=== PATIENT | female | born 2000 | race Caucasian/White ===

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

== ENCOUNTER 2019-01-02 15:21 | Emergency (ER) | payer OTHER ==
--- NOTE | 2019-01-02 15:46 | Emergency Department Record ---
History of Present Illness - General Chief Complaint: Dizziness Stated Complaint: LIGHTHEADED,NAUSEA Time Seen by Provider: 01/02/19 15:40 Source: Patient Mode of Arrival: Ambulatory Limitations: No limitations - History of Present Illness Initial Comments: 18 yo female presents with nausea, lightheaded and dizziness that started this afternoon. She denies syncope. No fevers. She just completed Macrobid for a UTI. No rash. No fever. No vomiting or diarrhea. Normal recent menstrual cycle. MD Complaint: Dizziness, Lightheadedness Onset/Timin -: Days(s) Timing: Constant Description: Difficulty walking, "Room spinning" History of Same: No History of Trauma: No Severity: Moderate Improves With: Nothing Worsens With: Nothing Associated Symptoms: Denies other symptoms - [place] Coma Scale Eye Response: (4) Open spontaneously Motor Response: (6) Obeys commands Verbal Response: (5) Oriented [place] Total: 15 - Related Data Allergies Allergy/AdvReac Type Severity Reaction Status Date / Time No Known Drug Allergies Allergy Verified 01/02/19 15:33 Travel Screening - Travel/Exposure Within Last 30 Days Have you traveled within the last 30 days?: No - Travel/Exposure Within Last Year Have you traveled outside the [place] in the last year?: No - Additonal Travel Details Have you been exposed to anyone with a communicable illness?: No - Travel Symptoms Symptom Screening: None Review of Systems Constitutional: Reports: Malaise, Weakness. Denies: Chills, Fever Eyes: Denies: Eye discharge, Eye pain, Photophobia, Vision change ENT: Denies: Congestion, Throat pain Respiratory: Denies: Cough, Dyspnea, Hemoptysis, Stridor, Wheezes Cardiovascular: Reports: Palpitations. Denies: Chest pain, Dyspnea on exertion , Edema, Syncope Endocrine: Reports: Fatigue. Denies: Polydipsia, Polyuria Gastrointestinal: Reports: Nausea. Denies: Abdominal pain, Diarrhea, Vomiting Genitourinary: Denies: Dysuria, Urgency Musculoskeletal: Denies: Arthralgia, Back pain, Myalgia Skin: Denies: Bruising, Change in color, Rash Neurological: Reports: Vertigo. Denies: Abnormal gait, Confusion, Headache, Paresthesias, Seizure, Tingling, Tremors Psychiatric: Denies: Anxiety Hematological/Lymphatic: Denies: Easy bleeding, Easy bruising Past Medical History - SOCIAL HISTORY Smoking Status: Never smoker Alcohol Use: None Drug Use: Rare Drug Use Detail:: Marijuana - RESPIRATORY Hx Respiratory Disorders: No - CARDIOVASCULAR Hx Cardio Disorders: No - NEURO Hx Neuro Disorders: No - GI Hx GI Disorders: Yes Hx Abdominal Pain: Yes Hx Nausea/Vomiting: Yes Hx Rectal Bleeding: Yes Comment:: chronic diarrhea - Hx Genitourinary Disorders: Yes Hx UTI: Yes - ENDOCRINE Hx Endocrine Disorders: No - MUSCULOSKELETAL Hx Musculoskeletal Disorders: No - PSYCH Hx Psych Problems: Yes Hx Anxiety: Yes Hx Depression: Yes - HEMATOLOGY/ONCOLOGY Hx Hematology/Oncology Disorders: No Family Medical History Any Significant Family History?: Yes Hx HTN: Father Physical Exam - General General Appearance: Alert, Oriented x3, Cooperative, No acute distress Limitations: No limitations - Head Head exam: Atraumatic, Normal inspection - Eye Eye exam: Normal appearance, Conjunctival injection. negative: Scleral icterus - ENT ENT exam: Normal exam Ear exam: Normal external inspection Nasal Exam: Normal inspection Mouth exam: Normal external inspection Teeth exam: Normal inspection Throat exam: Normal inspection - Neck Neck exam: Normal inspection - Respiratory Respiratory exam: Normal lung sounds bilaterally. negative: Accessory muscle use, Decreased breath sounds, Prolonged expiratory, Respiratory distress, Rhonchi, Stridor, Wheezes - Cardiovascular Cardiovascular Exam: Regular rate, Normal rhythm, Normal heart sounds. negative : Diastolic murmur, Systolic murmur - GI/Abdominal GI/Abdominal exam: Soft. negative: Distended, Guarding, Tenderness - Rectal Rectal exam: Deferred - exam: Deferred - Extremities Extremities exam: Normal inspection. negative: Tenderness - Back Back exam: Denies: CVA tenderness (R), CVA tenderness (L) - Neurological Neurological exam: Alert, CN II-XII intact, Normal gait, Oriented X3. negative : Abnormal gait, Motor sensory deficit - Psychiatric Psychiatric exam: Normal affect, Normal mood. negative: Agitated, Anxious - Skin Skin exam: Dry, Intact, Normal color, Warm Course Vital Signs 01/02/19 15:35 Temperature 98.3 F Pulse Rate 62 Respiratory 18 Rate Blood Pressure 136/79 Pulse Ox 99 - Reevaluation(s) Reevaluation #1: No acute changes on the vitals 01/02/19 15:48 01/02/19 16:09 EKG #1: 16:01 Rate: 63 Rhythm: sinus Boaz: normal Intervals: normal ST segments: normal Medical Decision Making - Lab Data Result diagrams: 01/02/19 16:10 01/02/19 16:10 Disposition Disposition: Discharge Clinical Impression: Lightheadedness, Hypokalemia Disposition: Home, Self-Care Condition: (1) Good Instructions: Dizziness (ED), Hypokalemia (ED) Additional Instructions: Call your doctor for the next available follow up appointment Return to the ER for a recheck if worse, any new concerns or questions Take the prescriptions provided as directed Review this ER visit and the tests performed with your family doctor Forms: Patient Portal Access Time of Disposition: 16:50 Quality - Quality Measures Quality Measures: N/A - Blood Pressure Screening Does Patient Have Any of the Following: No Blood Pressure Classification: Pre-Hypertensive BP Reading Systolic Measurement: 136 Diastolic Measurement: 79 Screening for High Blood Pressure: < Pre-Hypertensive BP, F/U Documented > [ G8950] Pre-Hypertensive Follow-up Interventions: Referral to alternative/primary care provider.
[2019-01-02 16:27] LABS: BASO % 0.3 % (0-6); EOS % 0.2 % (0-6); GRAN % 69.9 % (47-80); HEMATOCRIT 41.8 % (35.0-47.0); MEAN CELL VOLUME 81.3 fl (81-97); MEAN CORPUSCULAR HEMOGLOBIN 25.3 pg (27-33); MEAN CORPUSCULAR HGB CONC 31.1 g/dl (32-36); MEAN PLATELET VOLUME 10.8 fl (7.4-10.4); MONO % 10.6 % (0-9); PLATELET COUNT 267 K/uL (130-400); RED BLOOD COUNT 5.14 M/uL (3.80-5.40); RED CELL DISTRIBUTION WIDTH 14.9 % (11.5-14.5); URINE APPEARANCE CLEAR; URINE BILIRUBIN NEGATIVE (NEGATIVE); URINE BLOOD NEGATIVE (NEGATIVE); URINE COLOR YELLOW; URINE GLUCOSE (UA) NEGATIVE (NEGATIVE); URINE KETONE NEGATIVE (NEGATIVE); URINE LEUKOCYTE ESTERASE NEGATIVE (NEGATIVE); URINE NITRITE NEGATIVE (NEGATIVE); URINE PROTEIN NEGATIVE (NEGATIVE); URINE UROBILINOGEN 0.2 E.U./dL (0.20 - 1.00); WHITE BLOOD COUNT W/O DIFF 8.8 K/uL (4.2-12.2)
[2019-01-02 16:30] LABS: HCG,QUALITATIVE URINE NEGATIVE (NEGATIVE)
[2019-01-02 16:43] LABS: BLOOD UREA NITROGEN 12 mg/dL (6-20); CREATININE 0.6 mg/dL (0.5-0.9)
[2019-01-02 16:46] LABS: GLUCOSE,RANDOM 89 mg/dL (74-109)
[2019-01-02 16:48] LABS: ALT/SGPT 17 U/L (<33); AST/SGOT 16 U/L (10.0-35.0)
[2019-01-02 16:49] LABS: ALB/GLOB RATIO 1.4 (1.1-1.8); ALBUMIN 4.7 g/dL (4.0-5.0); ALKALINE PHOSPHATASE 88 U/L (35-104)
[2019-01-02] MEDS ORDERED: POTASSIUM CHLORIDE 20 MEQ TABLET PO ONE (16:50)
== END 2019-01-02 17:11 | disposition home or self-care (01) ==
LOC: ER 15:21
DX: R42 Dizziness and giddiness (principal); E87.6 Hypokalemia; R11.0 Nausea
CPT/HCPCS: 80053; 81003; 81025; 85025; 93005; 93010; 99284

== ENCOUNTER 2019-05-09 18:42 | Emergency (ER) | payer OTHER ==
[2019-05-09 18:57] LABS: URINE APPEARANCE CLEAR; URINE BILIRUBIN NEGATIVE (NEGATIVE); URINE BLOOD TRACE-I (NEGATIVE); URINE COLOR YELLOW; URINE KETONE NEGATIVE (NEGATIVE); URINE LEUKOCYTE ESTERASE TRACE (NEGATIVE); URINE PROTEIN TRACE (NEGATIVE)
--- NOTE | 2019-05-09 19:02 | Emergency Department Record ---
History of Present Illness - General Stated complaint: PAINFUL FREQUENT URINATION Time Seen by Provider: 05/09/19 18:44 Source: Patient Mode of Arrival: Ambulatory Limitations: No limitations - History of Present Illness Initial comments: 19 yo female presents to ED for evaluation of urinary frequency and burning that began yesterday morning. Patient reports mild suprapubic discomfort, denies flank pain, nausea, vomiting, or fever symptoms. Patient denies health problems at her baseline. Patient denies history of kidney stones as well. Patient also reports that she has been taking Azo at home. MD Complaint: Dysuria Onset/Timin -: Days(s) Location: Suprapubic Radiation: Non-radiating Severity: Moderate Quality: Burning Consistency: Intermittent Improves with: None Worsens with: Urination Patient : No Associated Symptoms: Denies other symptoms - Related Data Previous Rx's Medication Instructions Recorded Nitrofurantoin Monohyd/M-Cryst 100 mg PO BID #13 capsule 05/09/19 [Macrobid 100 mg Capsule] Allergies Allergy/AdvReac Type Severity Reaction Status Date / Time No Known Drug Allergies Allergy Verified 05/09/19 19:02 Review of Systems Constitutional: Denies: Chills, Fever, Malaise, Night sweats Eyes: Denies: Eye discharge, Eye pain ENT: Denies: Congestion, Ear pain, Epistaxis Respiratory: Denies: Cough, Dyspnea Cardiovascular: Denies: Chest pain, Dyspnea on exertion Endocrine: Denies: Fatigue, Heat or cold intolerance Gastrointestinal: Reports: Abdominal pain. Denies: Nausea, Vomiting Genitourinary: Reports: Dysuria, Frequency. Denies: Incontinence, Retention Musculoskeletal: Denies: Arthralgia, Back pain Skin: Denies: Bruising, Change in color Neurological: Denies: Abnormal gait, Confusion, Headache, Tingling, Tremors Psychiatric: Denies: Anxiety Hematological/Lymphatic: Denies: Anemia, Blood Clots Past Medical History - SOCIAL HISTORY Smoking Status: Never smoker Drug Use: Rare Drug Use Detail:: Marijuana - RESPIRATORY Hx Respiratory Disorders: No - CARDIOVASCULAR Hx Cardio Disorders: No - NEURO Hx Neuro Disorders: No - GI Hx GI Disorders: Yes Hx Abdominal Pain: Yes Hx Nausea/Vomiting: Yes Hx Rectal Bleeding: Yes Comment:: chronic diarrhea - Hx Genitourinary Disorders: Yes Hx UTI: Yes - ENDOCRINE Hx Endocrine Disorders: No - MUSCULOSKELETAL Hx Musculoskeletal Disorders: No - PSYCH Hx Psych Problems: Yes Hx Anxiety: Yes Hx Depression: Yes - HEMATOLOGY/ONCOLOGY Hx Hematology/Oncology Disorders: No Family Medical History Hx HTN: Father Physical Exam - General General Appearance: Alert, Oriented x3, Cooperative, Mild distress Limitations: No limitations - Head Head exam: Atraumatic, Normocephalic, Normal inspection Head exam detail: negative: Abrasion, Contusion, Alvarado's sign, General tenderness, Hematoma, Laceration - Eye Eye exam: Normal appearance. negative: Conjunctival injection, Periorbital swelling, Periorbital tenderness, Scleral icterus - ENT Ear exam: negative: Auricular hematoma, Auricular trauma Nasal Exam: negative: Active bleeding, Discharge, Dried blood, Foreign body Mouth exam: negative: Drooling, Laceration, Muffled voice, Tongue elevation - Neck Neck exam: Normal inspection. negative: Meningismus, Tenderness - Respiratory Respiratory exam: Normal lung sounds bilaterally. negative: Respiratory distress, Rhonchi, Stridor, Wheezes - Cardiovascular Cardiovascular Exam: Regular rate, Normal rhythm, Normal heart sounds - GI/Abdominal GI/Abdominal exam: Soft. negative: Distended, Rebound, Rigid, Tenderness - Rectal Rectal exam: Deferred - exam: Deferred - Extremities Extremities exam: Normal inspection. negative: Pedal edema, Tenderness - Back Back exam: Denies: CVA tenderness (R), CVA tenderness (L) - Neurological Neurological exam: Alert, Normal gait, Oriented X3 - Psychiatric Psychiatric exam: Normal affect, Normal mood - Skin Skin exam: Normal color. negative: Abrasion Type of lesion: negative: abrasion Course - Reevaluation(s) Reevaluation #1: 05/09/19 19:13 UA was reviewed: Positive Nitrite, positive leukocyte esterase Patient is symptomatic as well. Will treat with Macrobid for dysuria symptoms. Patient is otherwise well appearing and stable for discharge at this time. Disposition Disposition: Discharge Clinical Impression: Acute cystitis Qualifiers: Hematuria presence: with hematuria Qualified Code(s): N30.01 - Acute cystitis with hematuria Disposition: Home, Self-Care Condition: (2) Stable Instructions: Urinary Tract Infection in Women (ED) Additional Instructions: Return to ED if your symptoms worsen or if you have any concerns. Macrobid as directed. Follow-up with your family doctor in 3-5 days as directed. Prescriptions: Nitrofurantoin Monohyd/M-Cryst [Macrobid 100 mg Capsule] 100 mg PO BID #13 capsule Time of Disposition: 19:02 Quality - Quality Measures Quality Measures: N/A - Blood Pressure Screening Does Patient Have Any of the Following: No Blood Pressure Classification: Pre-Hypertensive BP Reading Systolic Measurement: 128 Diastolic Measurement: 59 Screening for High Blood Pressure: < Pre-Hypertensive BP, F/U Documented > [G8950] Pre-Hypertensive Follow-up Interventions: Referral to alternative/primary care provider.
[2019-05-09 19:09] LABS: URINE NITRITE POSITIVE (NEGATIVE)
[2019-05-09 19:10] LABS: URINE EPITHELIAL CELLS 0 - 2 (FEW); URINE RBC 0 - 2 (NONE SEEN); URINE WBC 0 - 2 (0-2/hpf)
[2019-05-09] MEDS ORDERED: NITROFURANTOIN MONO 100 MG CAPSULE PO ONE (19:15)
== END 2019-05-09 19:28 | disposition home or self-care (01) ==
LOC: ER 18:42
DX: N30.01 Acute cystitis with hematuria (principal); R30.0 Dysuria
CPT/HCPCS: 81001; 99283

== ENCOUNTER 2019-08-26 15:54 | Emergency (ER) | payer OTHER ==
--- NOTE | 2019-08-26 16:31 | Emergency Department Record ---
History of Present Illness - General Chief Complaint: Chest Pain Stated Complaint: MONY Time Seen by Provider: 08/26/19 16:07 Source: Patient Mode of Arrival: Ambulatory Limitations: No limitations - History of Present Illness Initial Comments: The patient is here due to lower chest pain for the last 8 hours. The onset was at 8:30 am today and it feels like a mild chest tightness. She does have mild SOB with it at times and deep breathing does make the pain worse. There has been no nausea, vomiting, sweating or dizziness with the pain. The patient did go to work today with no problems and eating and drinking do not make the pain worse. She has no hx of similar issues and no cardiac risk factors. The patient is on Depo also. MD Complaint: Chest pain Onset/Timin -: Hour(s) Onset: Other Pain Location: Substernal Severity: Mild Severity scale (1-10): 6 Quality: Tightness Consistency: Constant Worsens With: Inspiration Treatments Prior to Arrival: None - Related Data Home Medications Medication Instructions Recorded Confirmed Last Taken Medroxyprogesterone Acetate [Depo 150 mg IM 08/26/19 Unknown Provera] Previous Rx's Medication Instructions Recorded Sucralfate [Carafate] 1 gm PO QID #28 tablet 08/26/19 Allergies Allergy/AdvReac Type Severity Reaction Status Date / Time No Known Drug Allergies Allergy Verified 05/09/19 19:02 Travel Screening - Travel/Exposure Within Last 30 Days Have you traveled within the last 30 days?: No - Travel/Exposure Within Last Year Have you traveled outside the [place] in the last year?: No - Additonal Travel Details Have you been exposed to anyone with a communicable illness?: No - Travel Symptoms Symptom Screening: None Review of Systems Constitutional: Denies: Chills, Fever Eyes: Denies: Eye discharge ENT: Denies: Congestion Respiratory: Denies: Cough, Hemoptysis Cardiovascular: Denies: Arrhythmia Endocrine: Denies: Fatigue Gastrointestinal: Denies: Nausea Genitourinary: Denies: Dysuria Musculoskeletal: Denies: Arthralgia Skin: Denies: Bruising Past Medical History - SOCIAL HISTORY Smoking Status: Never smoker Alcohol Use: None Drug Use Detail:: Marijuana - RESPIRATORY Hx Respiratory Disorders: No - CARDIOVASCULAR Hx Cardio Disorders: No - NEURO Hx Neuro Disorders: No - GI Hx GI Disorders: Yes Hx Abdominal Pain: Yes Hx Nausea/Vomiting: Yes Hx Rectal Bleeding: Yes Comment:: chronic diarrhea - Hx Genitourinary Disorders: Yes Hx UTI: Yes - ENDOCRINE Hx Endocrine Disorders: No - MUSCULOSKELETAL Hx Musculoskeletal Disorders: No - PSYCH Hx Psych Problems: Yes Hx Anxiety: Yes Hx Depression: Yes Comment:: bipolar - HEMATOLOGY/ONCOLOGY Hx Hematology/Oncology Disorders: No Family Medical History Any Significant Family History?: No Hx HTN: Father Physical Exam - General General Appearance: Alert, Oriented x3, Cooperative, No acute distress - Head Head exam: Atraumatic, Normocephalic, Normal inspection - Eye Eye exam: Normal appearance, PERRL, EOMI - ENT Throat exam: Normal inspection. negative: Tonsillar erythema, Tonsillar exudate - Neck Neck exam: Normal inspection, Full ROM. negative: Tenderness - Respiratory Respiratory exam: Normal lung sounds bilaterally. negative: Respiratory distress - Cardiovascular Cardiovascular Exam: Regular rate, Normal rhythm, Normal heart sounds. negative: Diastolic murmur, Systolic murmur - GI/Abdominal GI/Abdominal exam: Soft, Normal bowel sounds, Tenderness (There is mild epigastric tenderness that does reproduce the patient's pain.). negative: Rebound, Rigid - Extremities Extremities exam: Normal inspection, Full ROM, Normal capillary refill. negative: Calf tenderness, Pedal edema, Tenderness - Neurological Neurological exam: Alert, Normal gait. negative: Abnormal gait, Motor sensory deficit - Psychiatric Psychiatric exam: negative: Anxious Course Vital Signs 08/26/19 16:11 Temperature 98.4 F Pulse Rate [ 89 Left] Respiratory 20 Rate Blood Pressure 148/94 [Right Arm] Pulse Ox 99 - Reevaluation(s) Reevaluation #1: The patient is doing much better at this time. She feels back to normal and has no pain or discomfort or trouble breathing. 08/26/19 17:17 Reevaluation #2: The patient is doing very well at this time. She remains pain free. I did discuss the fact that her workup is all neg including EKG, CXR, Trop, D-dimer and all the rest of the lab work. I believe the patient may have gastritis so we will discharge on Carafate. I strongly doubt any cardiac or pulmonary issues due to the fact the patient has a HEART Score of 0, and a neg D-dimer. 08/26/19 17:53 Medical Decision Making - Data Complexity MDM Data: Labs Ordered and/or Reviewed, X-Ray Ordered and/or Reviewed, EKG Ordered and/or Reviewed - Lab Data Result diagrams: 08/26/19 16:45 08/26/19 16:45 - EKG Data -: EKG Interpreted by Me EKG: No Acute Changes, Normal EKG - Radiology Data Radiology results: Report reviewed (CXR: Neg.) Disposition Disposition: Discharge Clinical Impression: Gastritis Qualifiers: Gastritis type: unspecified gastritis Chronicity: acute Gastritis bleeding: without bleeding Qualified Code(s): K29.00 - Acute gastritis without bleeding Disposition: Home, Self-Care Condition: (2) Stable Instructions: Gastritis (ED) Additional Instructions: Please continue your regular medicines and please take the Carafate as directed. Please see your doctor next week if needed and return to the ER for any worsening symptoms. Prescriptions: Sucralfate [Carafate] 1 gm PO QID #28 tablet Forms: Patient Portal Access Time of Disposition: 17:55 Quality - Quality Measures Quality Measures: N/A - Blood Pressure Screening View Details: Yes Does Patient Have Any of the Following: No Blood Pressure Classification: Pre-Hypertensive BP Reading Systolic Measurement: 120 Diastolic Measurement: 78 Screening for High Blood Pressure: < Pre-Hypertensive BP, F/U Documented > [G8950] Pre-Hypertensive Follow-up Interventions: Referral to alternative/primary care provider.
[2019-08-26] MEDS: MAGNESIUM HYDROXIDE/AL HYDROX 30 ML, LIDOCAINE VISC 2% 15ML 15 ML PO ONE ×2 (16:40)
[2019-08-26] MEDS: ACETAMINOPHEN 1,000 MG/100 ML BTL IVPB ONE (16:48)
[2019-08-26 17:00] LABS: ABSOLUTE NEUTROPHIL COUNT 3.77; BASO % 0.3 % (0-6); EOS % 0.6 % (0-6); GRAN % 56.3 % (47-80); HEMATOCRIT 38.7 % (35.0-47.0); HEMOGLOBIN 12.3 gm/dl (11.6-16.0); LYMPH % 29.9 % (16-45); MEAN CELL VOLUME 84.9 fl (81-97); MEAN CORPUSCULAR HGB CONC 31.8 g/dl (32-36); MEAN PLATELET VOLUME 10.5 fl (7.4-10.4); MONO % 12.9 % (0-9); PLATELET COUNT 264 K/uL (130-400); RED BLOOD COUNT 4.56 M/uL (3.80-5.40); RED CELL DISTRIBUTION WIDTH 13.7 % (11.5-14.5); WHITE BLOOD COUNT W/O DIFF 6.7 K/uL (4.2-12.2)
[2019-08-26 17:13] LABS: BLOOD UREA NITROGEN 16 mg/dL (6-20); CREATININE 0.8 mg/dL (0.5-0.9); EST GLOMERULAR FILTRATION RATE > 60 mL/min
[2019-08-26 17:14] LABS: TOTAL PROTEIN 7.2 g/dL (6.6-8.7)
[2019-08-26 17:16] LABS: GLUCOSE,RANDOM 82 mg/dL (74-109)
[2019-08-26 17:19] LABS: ALB/GLOB RATIO 1.9 (1.1-1.8); ALBUMIN 4.7 g/dL (4.0-5.0); ALKALINE PHOSPHATASE 68 U/L (35-104); ALT/SGPT 14 U/L (<33); AST/SGOT 15 U/L (10.0-35.0)
--- NOTE | 2019-08-26 17:38 | RADIOLOGY REPORT ---
EXAMINATION: Two View Chest Radiographs EXAM DATE: 08/26/2019 5:07 PM TECHNIQUE: Frontal and lateral views INDICATION: upper AP COMPARISON: 02/17/2016 ENCOUNTER: Not applicable FINDINGS: Cardiomediastinal structures stable. No pulmonary consolidation or infiltration. No pneumothorax or p leural effusion. Dextroscoliosis. IMPRESSION: No acute abnormality Dictated by: Zurdo De Anda MD on 08/26/2019 5:35 PM. .
== END 2019-08-26 18:21 | disposition home or self-care (01) ==
LOC: ER 15:54
DX: K29.00 Acute gastritis without bleeding (principal); R07.2 Precordial pain; R06.00 Dyspnea, unspecified
CPT/HCPCS: 71046; 80053; 83690; 84484; 84703; 85025; 85379; 93005; 93010; 96374; 99284

== ENCOUNTER 2019-10-31 20:09 | Emergency (ER) | payer OTHER ==
[2019-10-31 20:29] LABS: URINE APPEARANCE SL CLOUDY; URINE BILIRUBIN NEGATIVE (NEGATIVE); URINE BLOOD NEGATIVE (NEGATIVE); URINE COLOR YELLOW; URINE GLUCOSE (UA) NEGATIVE (NEGATIVE); URINE KETONE NEGATIVE (NEGATIVE); URINE LEUKOCYTE ESTERASE NEGATIVE (NEGATIVE); URINE NITRITE NEGATIVE (NEGATIVE); URINE PROTEIN NEGATIVE (NEGATIVE); URINE UROBILINOGEN 0.2 E.U./dL (0.20 - 1.00)
--- NOTE | 2019-10-31 20:30 | Emergency Department Record ---
History of Present Illness - General Chief complaint: Female Urogenital Problem Stated complaint: UTI? Time Seen by Provider: 10/31/19 20:17 Source: Patient Mode of Arrival: Ambulatory Limitations: No limitations - History of Present Illness Initial comments: 19 yo female presents with discomfort with urination. She reports that she has had a history of prior UTI's and this feels similar. NO significant back pain. No nausea, vomiting, or shaking chills. Her last UTI was about a month ago. No prior kidney stone history. She does not think she is . MD Complaint: Dysuria -: Days(s) Radiation: Suprapubic Severity: Moderate Severity scale (1-10): 6 Quality: Aching Improves with: None Worsens with: None Patient : No Associated Symptoms: Denies other symptoms - Related Data Sexually active: Yes Allergies Allergy/AdvReac Type Severity Reaction Status Date / Time No Known Drug Allergies Allergy Unverified 10/19/19 18:43 Travel/Exposure Screening - Travel/Exposure Within Last 30 Days Have you traveled within the last 30 days?: No - Additonal Travel/Exposure Details Have you been exposed to anyone with a communicable illness?: No - Travel Symptoms Symptom Screening: None Review of Systems Constitutional: Reports: Fever (subjective). Denies: Chills, Malaise, Weakness Eyes: Denies: Eye discharge ENT: Denies: Congestion, Throat pain Respiratory: Denies: Cough Cardiovascular: Denies: Chest pain, Palpitations, Syncope Endocrine: Denies: Fatigue, Polydipsia, Polyuria Gastrointestinal: Reports: Abdominal pain (suprapubic). Denies: Diarrhea, Nausea, Vomiting Genitourinary: Reports: Dysuria, Frequency, Urgency. Denies: Discharge, Hematu yasir Musculoskeletal: Denies: Arthralgia, Back pain, Neck pain Neurological: Denies: Numbness, Weakness Psychiatric: Denies: Anxiety Hematological/Lymphatic: Denies: Easy bruising Past Medical History - SOCIAL HISTORY Smoking Status: Never smoker Alcohol Use: None Drug Use: Occasional Drug Use Detail:: Marijuana - RESPIRATORY Hx Respiratory Disorders: No - CARDIOVASCULAR Hx Cardio Disorders: No - NEURO Hx Neuro Disorders: No - GI Hx GI Disorders: Yes Hx Abdominal Pain: Yes Hx Nausea/Vomiting: Yes Hx Rectal Bleeding: Yes Comment:: chronic diarrhea - Hx Genitourinary Disorders: Yes Hx UTI: Yes - ENDOCRINE Hx Endocrine Disorders: No - MUSCULOSKELETAL Hx Musculoskeletal Disorders: No - PSYCH Hx Psych Problems: Yes Hx Anxiety: Yes Hx Depression: Yes Comment:: bipolar - HEMATOLOGY/ONCOLOGY Hx Hematology/Oncology Disorders: No Family Medical History Any Significant Family History?: Yes Hx HTN: Father Physical Exam - General General Appearance: Alert, Oriented x3, Cooperative, No acute distress Limitations: No limitations - Head Head exam: Atraumatic, Normal inspection - Eye Eye exam: Normal appearance, PERRL. negative: Conjunctival injection - ENT ENT exam: Normal exam Ear exam: Normal external inspection Nasal Exam: Normal inspection Mouth exam: Normal external inspection - Neck Neck exam: Normal inspection - GI/Abdominal GI/Abdominal exam: Soft, Tenderness (mild tenderness in the suprapubic area). negative: Distended, Guarding, Rebound, Rigid - Rectal Rectal exam: Deferred - Extremities Extremities exam: negative: Pedal edema, Tenderness - Back Back exam: Denies: CVA tenderness (R), CVA tenderness (L), Paraspinal tenderness, Tenderness - Neurological Neurological exam: Alert, Oriented X3 - Psychiatric Psychiatric exam: Normal affect, Normal mood - Skin Skin exam: Dry, Intact, Normal color, Warm Course Vital Signs 10/31/19 20:17 Temperature 99.7 F H Pulse Rate 68 Respiratory 16 Rate Blood Pressure 122/67 Pulse Ox 97 Disposition Disposition: Discharge Clinical Impression: Dysuria Disposition: Home, Self-Care Condition: (1) Good Instructions: Dysuria (ED) Additional Instructions: Review this ER visit and the tests performed with your family doctor Call your doctor for the next available follow up appointment Return to the ER for a recheck immediately if worse, any new concerns or questions Stay well hydrated Return in 1-2 days or see your family doctor for a repeat urine test if the symptoms continue Forms: Patient Portal Access Time of Disposition: 20:39 Quality - Quality Measures Quality Measures: N/A - Blood Pressure Screening Does Patient Have Any of the Following: No Blood Pressure Classification: Pre-Hypertensive BP Reading Systolic Measurement: 122 Diastolic Measurement: 67 Screening for High Blood Pressure: < Pre-Hypertensive BP, F/U Documented > [G8950] Pre-Hypertensive Follow-up Interventions: Referral to alternative/primary care provider.
== END 2019-10-31 20:45 | disposition home or self-care (01) ==
LOC: ER 20:09
DX: R30.0 Dysuria (principal)
CPT/HCPCS: 81003; 81025; 99283